=== PATIENT | female | born 1945 | race Caucasian/White ===

== ENCOUNTER 2018-04-23 11:21 | Emergency (ER) | payer MEDICARE, OTHER ==
[2018-04-23] MEDS ORDERED: GLUCAGON,HUMAN RECOMB 1 MG INJ IV ONE (11:53)
--- NOTE | 2018-04-23 11:59 | ER Document Report ---
ED General - General Mode of Arrival: Ambulatory Information source: Patient TRAVEL OUTSIDE OF THE [place] IN LAST 30 DAYS: No - General Chief Complaint: Swallowed Foreign Body Stated Complaint: FOREIGN BODY IN THROAT Time Seen by Provider: 04/23/18 11:41 Notes: Patient is a 72-year-old female with hypertension, acid reflux, a hiatal hernia and a history of diverticulosis, constipation and multiple esophageal dilations presents to the emergency department, from Dr. Sauceda's office, complaining of food stuck in her throat. Patient states she ate a piece of chicken parmesan , after cutting it up in small pieces last night and immediately began to choke. Patient states she normally does not eat food like chicken, steak or hot dogs. At bedside, patient states drinking some fluids, mainly "fizzy drinks", will help the food go down but she has to give a conscientious effort. She states she can still feel the piece of chicken in her throat. Patient states she had a recent dilation to approximately 2 months ago. (CARMEN ARAUJO) - Related Data Allergies/Adverse Reactions: clindamycin Allergy (Verified 02/05/16 08:17) lansoprazole [From Prevacid] Allergy (Verified 02/05/16 08:17) Penicillins Allergy (Verified 01/30/16 08:30) Proton Pump Inhibitors Allergy (Verified 01/30/16 08:30) Sulfa (Sulfonamide Antibiotics) Allergy (Verified 01/30/16 08:30) Past Medical History - General Information source: Patient - Social History Smoking Status: Former Smoker Chew tobacco use (# tins/day): No Frequency of alcohol use: Rare Drug Abuse: None Family History: Reviewed & Not Pertinent Patient has suicidal ideation: No Patient has homicidal ideation: No - Past Medical History Cardiac Medical History: Reports: Hx Hypertension GI Medical History: Reports: Hx Gastroesophageal Reflux Disease, Hx Hiatal Hernia Past Surgical History: Reports: Hx Cholecystectomy, Hx Tubal Ligation - Immunizations Hx Diphtheria, Pertussis, Tetanus Vaccination: Yes Review of Systems - Review of Systems Constitutional: No symptoms reported EENT: See HPI, Difficulty swallowing Cardiovascular: No symptoms reported Respiratory: No symptoms reported Gastrointestinal: No symptoms reported Genitourinary: No symptoms reported Female Genitourinary: No symptoms reported Musculoskeletal: No symptoms reported Skin: No symptoms reported Hematologic/Lymphatic: No symptoms reported Neurological/Psychological: No symptoms reported -: Yes All other systems reviewed and negative Physical Exam - Vital signs Vitals: Temp Pulse Resp BP Pulse Ox 98.6 F 79 14 165/89 H 97 04/23/18 11:25 04/23/18 11:25 04/23/18 11:25 04/23/18 11:25 04/23/18 11:25 - Notes Notes: GENERAL: Alert, interacts well. No acute distress. HEAD: Normocephalic, atraumatic. EYES: Pupils equal, round, and reactive to light. Extraocular movements intact. ENT: Oral mucosa moist, tongue midline. NECK: Full range of motion. Supple. Trachea midline. LUNGS: Clear to auscultation bilaterally, no wheezes, rales, or rhonchi. No respiratory distress. HEART: Regular rate and rhythm. No murmurs, gallops, or rubs. ABDOMEN: Soft, non-tender. Non-distended. Bowel sounds present in all 4 quadrants. EXTREMITIES: Moves all 4 extremities spontaneously. NEUROLOGICAL: Alert and oriented x3. Normal speech. PSYCH: Normal affect, normal mood. SKIN: Warm, dry, normal turgor. No rashes or lesions noted. (CARMEN ARAUJO) Course - Re-evaluation Re-evalutation: 04/23/18 15:02 72-year-old female with a history of esophageal dysmotility and multiple esophageal strictures requiring multiple esophageal dilations presents emergency department stating that she has had a piece of chicken stuck in her throat since sometime last evening. States that she is able to get a small amount of liquid past at but not a large amount. States that she is occasionally gagging and has tried drinking fizzy drinks to get it to past without success. Patient was given glucagon, states that this feels like it dislodge some of the food, she was then able to drink some carlos sawyer without difficulty, states that she feels like some of this is reflux that we then gave her liquid ranitidine, this is completely resolved her symptoms. Patient feels much better, is drinking without difficulty and is excited to go home. Patient is requesting that I prescribe her some nitroglycerin for her esophageal spasms , states that she has had this in the past and worked really well. I am happy to prescribe this however I have cautioned the patient that it can cause hypotension and so she has agreed to only take it when sitting down and not to stand up for at least 10 minutes after she is taking the nitroglycerin. She will only take it 1 tablet at a time. Patient has also been prescribed the liquid ranitidine as she states this was far easier than crushing up the pill and then dissolving it in water. Patient is discharged to home. (VIKTORIYA RYAN) - Vital Signs Vital signs: Temp Pulse Resp BP Pulse Ox 98.9 F 71 16 140/77 H 97 04/23/18 15:41 04/23/18 15:41 04/23/18 15:41 04/23/18 15:41 04/23/18 15:41 Discharge - Discharge Clinical Impression: Esophageal obstruction due to food impaction, Esophageal spasm Condition: Stable Disposition: HOME, SELF-CARE Additional Instructions: I have prescribed ranitidine liquid and nitroglycerin and she request. Please remember the nitroglycerin can decrease your blood pressure. When you take it for your esophageal spasm please take it only when sitting down and only take 1 tablet at a time. Do not get up for at least 10 minutes after you take it. Prescriptions: Nitroglycerin 0.3 mg SL PRN PRN #30 tab.subl PRN Reason: esophageal spasm Ranitidine HCl [Zantac Syrup 150 mg/10 ml Udcup] 150 mg PO BID #60 udc Scribe Attestation: 04/23/18 16:07 I personally performed the services described in the documentation, reviewed and edited the documentation which was dictated to the scribe in my presence, and it accurately records my words and actions. (VIKTORIYA RYAN) Scribe Documentation - Scribe Written by Papa:: Papa Kerns, 04/23/2018 12:01 acting as scribe for :: Zack
[2018-04-23] MEDS ORDERED: RANITIDINE HCL SYRUP 150 MG/10 ML UDCUP PO ONE (13:32)
[2018-04-23 15:45] VITALS: BP 140/77
== END 2018-04-23 15:44 | disposition home or self-care (01) ==
LOC: ER 11:21
DX: K22.2 Esophageal obstruction (principal); K22.4 Dyskinesia of esophagus; T18.9XXA Foreign body of alimentary tract, part unspecified, initial encounter; I10 Essential (primary) hypertension; K21.9 Gastro-esophageal reflux disease without esophagitis; Z87.891 Personal history of nicotine dependence
CPT/HCPCS: 99283; J1610; A9270; J3490